=== PATIENT | female | born 1975 | race Caucasian/White ===

== ENCOUNTER → 2019-02-19 | Outpatient (CLI) | payer BC ==
--- NOTE | 2019-02-22 10:28 | MM ---
Reason for exam: screening (asymptomatic). Last mammogram was performed 2 years ago. History: Family history of breast cancer in grandmother at age 60 and premenopausal breast cancer in maternal aunt at age 42. U/S LT Cancelled Core of the left breast, March 15, 2011. Reductions of both breasts, 1995. Took hormonal contraceptives for 10 years. Physical Findings: A clinical breast exam by your physician is recommended on an annual basis and results should be correlated with mammographic findings. MG 3D Screening Mammo W/Cad Bilateral CC, MLO, and XCCL view(s) were taken. Prior study comparison: February 05, 2017, bilateral MG 3d diag mammo w/cad KELIN. October 19, 2015, bilateral MG 3d diag mammo w/cad KELIN. The breast tissue is heterogeneously dense. This may lower the sensitivity of mammography. Stable benign calcifications. There is no discrete abnormality. No significant changes when compared with prior studies. ASSESSMENT: Benign, BI-RAD 2 RECOMMENDATION: Routine screening mammogram of both breasts in 1 year.
== END | disposition home or self-care (01) ==
LOC: RADMAMWWP 08:38
PROVIDERS: ATTEND Obstetrics & Gynecology
DX: Z12.31 Encounter for screening mammogram for malignant neoplasm of breast (principal)
CPT/HCPCS: 77063; 77067

== ENCOUNTER → 2020-06-14 | Outpatient (CLI) | payer BC ==
--- NOTE | 2020-06-14 12:43 | MM ---
Reason for exam: screening (asymptomatic). Last mammogram was performed 1 year and 4 months ago. History: Family history of breast cancer in grandmother at age 60 and premenopausal breast cancer in maternal aunt at age 42. U/S LT Cancelled Core of the left breast, March 15, 2011. Reductions of both breasts, 1996. Took hormonal contraceptives for 10 years. Physical Findings: A clinical breast exam by your physician is recommended on an annual basis and results should be correlated with mammographic findings. MG 3D Screening Mammo W/Cad Bilateral CC and MLO view(s) were taken. Prior study comparison: February 19, 2019, bilateral MG 3d screening mammo w/cad. February 05, 2017, bilateral MG 3d diag mammo w/cad KELIN. The breast tissue is extremely dense which could obscure a lesion on mammography. There are benign appearing round calcifications bilaterally, greater in the left breast. Previous mammotome biopsy in the left breast. There is no discrete abnormality. ASSESSMENT: Benign, BI-RAD 2 RECOMMENDATION: Routine screening mammogram of both breasts in 1 year.
== END | disposition home or self-care (01) ==
LOC: RADMAMWWP 07:24
PROVIDERS: ATTEND Obstetrics & Gynecology
DX: Z12.31 Encounter for screening mammogram for malignant neoplasm of breast (principal); Z80.3 Family history of malignant neoplasm of breast
CPT/HCPCS: 77063; 77067

== ENCOUNTER → 2021-12-27 | Outpatient (CLI) | payer BC ==
--- NOTE | 2021-12-27 09:05 | MM ---
Reason for Exam: Clinical finding. Last mammogram was performed 1 year(s) and 6 month(s) ago. Indicated Problems: Lump or thickening of the left side (size 20) for 1 Week(s). Patient History: Menarche at age 13. First Full-Term at age 27. Patient has history of breast feeding. Patient used Hormonal Contraceptives for 10 years. 10/13/1994, Bilateral Reduction. 1995, Bilateral Reduction. 03/15/2011, U/S LT Cancelled Core on the left side. Maternal grandmother had breast cancer, age 60. Maternal aunt had breast cancer, age 46. Last menstrual period: 12/20/2021 Risk Values: Chelsi 5 year model risk: 0.9%. NCI Lifetime model risk: 9.5%. Prior Study Comparison: 02/05/2017 Bilateral Diagnostic Mammogram, [facility]. 02/05/2017 Bilateral Diagnostic Ultrasound, [facility]. 02/19/2019 Bilateral Screening Mammogram, [facility]. 06/14/2020 Bilateral Screening Mammogram, [facility]. Tissue Density: The breast tissue is heterogeneously dense. This may lower the sensitivity of mammography. Findings: Analyzed By CAD. Asymmetric density posterior central left MLO view remains unchanged. Microclip in this region from prior biopsy. Additional asymmetric density lateral posterior right cc view remains unchanged. Asymmetric density inferior left MLO view unchanged. Scattered punctate regional calcifications particularly on the left are unchanged. There is a new 1.3 cm spiculated mass in the left upper outer quadrant middle to posterior depth. Overlying palpable marker. Overall Assessment: Incomplete: need additional imaging evaluation, BI-RAD 0 Management: Diagnostic Breast Ultrasound of the left breast. Electronically signed and approved by: Amparo Mcgowan M.D. Radiologist
--- NOTE | 2021-12-27 09:40 | USB ---
Patient History: Menarche at age 13. First Full-Term at age 27. Patient has history of breast feeding. Patient used Hormonal Contraceptives for 10 years. 10/13/1994, Bilateral Reduction. 1995, Bilateral Reduction. 03/15/2011, U/S LT Cancelled Core on the left side. Maternal grandmother had breast cancer, age 60. Maternal aunt had breast cancer, age 46. Risk Values: Chelsi 5 year model risk: 0.9%. NCI Lifetime model risk: 9.5%. Technique: Method: Whole Breast Handheld. Prior Study Comparison: 02/05/2017 Bilateral Diagnostic Mammogram, [facility]. 02/19/2019 Bilateral Screening Mammogram, [facility]. 06/14/2020 Bilateral Screening Mammogram, [facility]. Findings: The whole breast of the left breast, the axilla of the left breast and the retroareolar of the left breast were scanned. A complete US of all four quadrants of the breast , axilla, and retro-areolar region were reviewed. At the 1:00 palpable site, 8 cm from the nipple, there is a 1.1 x 0.9 x 0.6 cm irregular hypoechoic mass with angular margins. This is vertically oriented with echogenic halo. No other solid or cystic lesion. No axillary lymphadenopathy. Overall Assessment: Highly suggestive of malignancy, BI-RAD 5 Management: Ultrasound Core Biopsy of the left breast. Results were given to the patient verbally at the time of exam. Electronically signed and approved by: Amparo Mcgowan M.D. Radiologist
== END | disposition home or self-care (01) ==
LOC: RADMAMWWP 08:22
PROVIDERS: ATTEND Obstetrics & Gynecology
DX: R92.8 Other abnormal and inconclusive findings on diagnostic imaging of breast (principal); Z80.3 Family history of malignant neoplasm of breast
CPT/HCPCS: 77062; 77066

== ENCOUNTER 2022-01-29 12:08 | Day surgery (SDC) | payer BC ==
--- NOTE | 2022-01-29 11:50 | P.GSHP ---
History of Present Illness H&P Date: 01/29/22 46-year-old female with recent diagnosis of left-sided breast cancer. Patient to begin neoadjuvant chemotherapy. Here today for Port-A-Cath placement. She has not had one previously. Past Medical History Past Medical History: Cancer Additional Past Medical History / Comment(s): new breast cancer dx. recently History of Any Multi-Drug Resistant Organisms: None Reported Past Surgical History: Breast Surgery Additional Past Surgical History / Comment(s): bilat breast reduction 1996 Past Anesthesia/Blood Transfusion Reactions: No Reported Reaction Smoking Status: Never smoker - Past Family History Mother Family Medical History: No Reported History Medications and Allergies Home Medications Medication Instructions Recorded Confirmed Type Multivit-Min/Folic Acid/Biotin 133.3 mcg PO DAILY 01/28/22 01/28/22 History [Hair, Skin and Nails Softgel] Allergies Allergy/AdvReac Type Severity Reaction Status Date / Time No Known Allergies Allergy Verified 01/28/22 08:19 Surgical - Exam Physical exam: General: Well-developed, well-nourished HEENT: Normocephalic, sclerae nonicteric Abdomen: Nontender, nondistended Extremities: No edema Neuro: Alert and oriented Assessment and Plan (1) Breast cancer, left Narrative/Plan: Will proceed with Port-A-Cath placement at this time. Risks of bleeding, infection, DVT, pneumothorax, catheter malfunction, anesthesia related complications were discussed. The patient understands and wishes to proceed. Status: Acute Code(s): C50.912 - MALIGNANT NEOPLASM OF UNSPECIFIED SITE OF LEFT FEMALE BREAST SNOMED Code(s): 735035018
[~2022-01-29 12:08] MED LIST: ACETAMINOPHEN TAB 500 MG TAB PO PRN; HEPARIN SODIUM,PORCINE/PF 5,000 UNIT/0.5 ML SYRINGE SQ PRN; Pre Op ABX Message 1 EACH MISC MISCELLANE ONE
[2022-01-29 12:51] VITALS: RESP 16
[2022-01-29] MEDS ORDERED: ONDANSETRON 4 MG/2 ML VIAL ONE (13:06)
[2022-01-29] MEDS ORDERED: LACTATED RINGERS 1,000 ML IV ONE (13:07)
[2022-01-29] MEDS ORDERED: ONDANSETRON 4 MG/2 ML VIAL IVP ONE (13:09)
[2022-01-29] MEDS ORDERED: DEXAMETHASONE SOD PHOSPHATE 4 MG/ML 1 ML VIAL IVP ONE (13:10)
[2022-01-29] MEDS ORDERED: MIDAZOLAM 2 MG/2 ML VIAL ONE (13:25)
[2022-01-29] MEDS ORDERED: PROPOFOL 10 MG/ML 20 ML VIAL IV ONE (13:25)
[2022-01-29] MEDS ORDERED: LIDOCAINE 2% INJ 20 MG/ML (2 ML VIAL) ONE (13:25)
[2022-01-29] MEDS ORDERED: fentaNYL (PF) 50 MCG/ML 2 ML AMP ONE (13:25)
[2022-01-29] MEDS ORDERED: LIDOCAINE 0.5% (PF) 5 MG/ML (50 ML SDV) SQ ONE ×2 (13:55)
[2022-01-29] MEDS ORDERED: HEPARIN SODIUM,PORCINE 100 UNIT/ML 5 ML VIAL IV ONE (13:55)
[2022-01-29] MEDS ORDERED: NALOXONE 0.4 MG/ML 1 ML VIAL IV PRN (14:23)
[2022-01-29] MEDS ORDERED: ACETAMINOPHEN TAB 325 MG TAB PO PRN (14:23)
[2022-01-29] MEDS ORDERED: traMADol 50 MG TAB PO PRN (14:23)
--- NOTE | 2022-01-29 14:23 | P.OP ---
Date of Procedure: 01/29/22 Procedure(s) Performed: PREOPERATIVE DIAGNOSIS: Breast cancer POSTOPERATIVE DIAGNOSIS: Same PROCEDURE: Port-A-Cath placement with fluoroscopic and ultrasound guidance SURGEON: Kwame EBL: Minimal ANESTHESIA: Sedation COMPLICATIONS: None OPERATIVE PROCEDURE: Patient was brought and placed on the operative table in the supine position. The patient was sedated per anesthesia that time. The chest and neck were prepped and draped in usual sterile fashion. The ultrasound probe was used to identify the location of the right internal jugular vein. The skin was localized with lidocaine. The Seldinger needle was advanced into the IJ under ultrasound guidance. The wire was advanced through the needle under fluoroscopic guidance into the superior vena cava. A port pocket was created in the right infraclavicular location. The catheter was tunneled from the wire entrance site to the port pocket. The port was then connected to the catheter. The dilator introducer was threaded over the guidewire. The guidewire and dilator were then removed. The catheter was advanced through the introducer and introducer was then removed. The tip was seen to be in the right atrial junction via fluoroscopy. A picture of the radiograph showing the tip at the radial digital junction was taken. Port was flushed with both saline and a Hep- Lock solution. There was good flow both in and out of the port. The port was sutured in underlying tissues using 3-0 silk sutures. The subcutaneous tissues were reapproximated using 3-0 Vicryl sutures and the skin at both locations using 4-0 Monocryl sutures. Skin glue and sterile dressings then applied. DISPOSITION: Stable to recovery room
[2022-01-29 14:25] VITALS: TEMP 96.8
--- NOTE | 2022-01-29 15:06 | XR ---
EXAMINATION TYPE: XR chest 1V portable DATE OF EXAM: 01/29/2022 COMPARISON: NONE HISTORY: Port placement. TECHNIQUE: Single AP portable frontal upright view of the chest is obtained. FINDINGS: Lungs are clear. There is right internal jugular Mediport catheter terminating in SVC. No pneumothorax is seen. The cardiac silhouette size is upper limits of normal. The osseous structures are intact. IMPRESSION: As above.
--- NOTE | 2022-01-29 15:12 | FL ---
EXAMINATION TYPE: FL guided central line placemt DATE OF EXAM: 01/29/2022 CLINICAL HISTORY: Port-A-Cath insertion TECHNIQUE: Fluoroscopy. COMPARISON: None. FINDINGS: Fluoroscopic guidance was provided during Port-A-Cath insertion procedure performed by Dr. De La Torre. A total of 5 seconds of fluoroscopic time was utilized during the procedure and 0 spot image s was acquired. IMPRESSION: As Above.
[2022-01-29 15:34] VITALS: BP 133/80; PULSE 56
== END 2022-01-29 15:53 | disposition home or self-care (01) ==
LOC: OR 12:08
PROVIDERS: ATTEND Surgery
DX: Z45.2 Encounter for adjustment and management of vascular access device (principal); C50.912 Malignant neoplasm of unspecified site of left female breast; Z85.3 Personal history of malignant neoplasm of breast
CPT/HCPCS: 36590; 81025; 77001; 71045; C1788; J2250; J1642; J1100; J2405; J2001 ×2; J3010; J2704; J1644

== ENCOUNTER → 2022-10-04 | Outpatient (CLI) | payer BC ==
--- NOTE | 2022-10-04 18:17 | CA ---
Transthoracic Echo Report Name: Isabel Au Age: 47 Gender: F : 1975 Exam Date: 10/04/2022 16:06 Exam Location: [facility] Ht (in): 66 Wt (lb): 150 Ordering Physician: Renzo Dasilva MD Attending/Referring Phys: Health Careers Instructor Josiane Wakefield [facility] Procedure CPT: Indications: Z01.818 Cardiac Hx: Technical Quality: Fair Contrast 1: Total Dose (mL): Contrast 2: Total Dose (mL): MEASUREMENTS (Male / Female) Normal Values 2D ECHO LV Diastolic Diameter PLAX 5.0 cm 4.2 - 5.9 / 3.9 - 5.3 cm LV Systolic Diameter PLAX 3.5 cm IVS Diastolic Thickness 0.8 cm 0.6 - 1.0 / 0.6 - 0.9 cm LVPW Diastolic Thickness 0.8 cm 0.6 - 1.0 / 0.6 - 0.9 cm LV Relative Wall Thickness 0.3 LVOT Diameter 2.0 cm Ascending Aorta Diameter 3.2 cm M-MODE Aortic Root Diameter MM 4.0 cm LA Systolic Diameter MM 2.5 cm LA Ao Ratio MM 0.6 AV Cusp Separation MM 2.6 cm DOPPLER AV Peak Velocity 116.1 cm/s AV Peak Gradient 5.4 mmHg AV Mean Velocity 87.2 cm/s AV Mean Gradient 3.3 mmHg AV Velocity Time Integral 22.3 cm LVOT Peak Velocity 86.6 cm/s LVOT Peak Gradient 3.0 mmHg LVOT Velocity Time Integral 18.5 cm LVOT Stroke Volume 59.6 cm??? LVOT Stroke Volume Index 33.7 ml/m??? LVOT Cardiac Index 3100.7 cm???/min???m??? AV Area Cont Eq vti 2.7 cm??? AV Area Cont Eq pk 2.4 cm??? Mitral E Point Velocity 49.6 cm/s Mitral A Point Velocity 62.8 cm/s Mitral E to A Ratio 0.8 MV Deceleration Time 192.2 ms LV E' Lateral Velocity 11.1 cm/s Mitral E to LV E' Lateral Ratio 4.5 LV E' Septal Velocity 10.9 cm/s Mitral E to LV E' Septal Ratio 4.6 Right Atrial Pressure 3.0 mmHg FINDINGS Left Ventricle Normal Left ventricular size and wall thickness. Left ventricular ejection fraction is estimated at 45-50 %. Mild global hypokinesis Right Ventricle Right ventricle at upper limits of normal. Unable to estimate the right ventricular systolic pressure. Right Atrium Normal right atrial size. Left Atrium Normal left atrial size. Mitral Valve Structurally normal mitral valve. Trace to mild mitral regurgitation. Aortic Valve Bicuspid aortic valve. No aortic valve stenosis or regurgitation. Tricuspid Valve Structurally normal tricuspid valve. No tricuspid regurgitation. Pulmonic Valve Pulmonic valve not well visualized. Pericardium No pericardial effusion. Aorta Moderate aortic dilatation at the level of the sinuses of valsalva (root). Proximal ascending aorta (tube) normal. CONCLUSIONS 1. Mildly impaired left ventricle systolic function with global hypokinesis 2. Trace to mild mitral regurgitation. 3. Bicuspid aortic valve Previewed by: Dr. Will Vasquez MD (Electronically Signed) Final Date: 04 October 2022 18:17
== END | disposition home or self-care (01) ==
LOC: RADECHMAIN 15:52
PROVIDERS: ATTEND Internal Medicine Hematology & Oncology
DX: Z01.818 Encounter for other preprocedural examination (principal); I34.0 Nonrheumatic mitral (valve) insufficiency; Q23.1 Congenital insufficiency of aortic valve
CPT/HCPCS: 93306

== ENCOUNTER → 2023-01-06 | Outpatient (CLI) | payer BC ==
--- NOTE | 2023-01-07 07:29 | CA ---
Transthoracic Echo Report Name: Isabel Au Age: 47 Gender: F : 1975 Exam Date: 01/06/2023 11:29 Exam Location: [facility] Ht (in): 66 Wt (lb): 155 Ordering Physician: Renzo Dasilva MD Attending/Referring Phys: Central Office Installer Angelica Adhikari RDCS Procedure CPT: Indications: Z01.818 Chemo Cardiac Hx: Technical Quality: Fair Contrast 1: Total Dose (mL): Contrast 2: Total Dose (mL): MEASUREMENTS (Male / Female) Normal Values 2D ECHO LV Diastolic Diameter PLAX 4.9 cm 4.2 - 5.9 / 3.9 - 5.3 cm LV Systolic Diameter PLAX 3.5 cm IVS Diastolic Thickness 0.8 cm 0.6 - 1.0 / 0.6 - 0.9 cm LVPW Diastolic Thickness 0.9 cm 0.6 - 1.0 / 0.6 - 0.9 cm LV Relative Wall Thickness 0.3 RV Internal Dim ED PLAX 3.1 cm LA Systolic Diameter LX 2.9 cm 3.0 - 4.0 / 2.7 - 3.8 cm LV Diastolic Volume MOD 4C 94.3 cm??? LV Systolic Volume MOD 4C 53.2 cm??? LV Ejection Fraction MOD 4C 43.6 % LV Cardiac Index MOD 4C 1582.9 cm???/min???m??? LV Diastolic Length 4C 7.4 cm LV Systolic Length 4C 6.8 cm LV Diastolic Volume MOD 2C 67.3 cm??? LV Systolic Volume MOD 2C 30.6 cm??? LV Ejection Fraction MOD 2C 54.6 % LV Cardiac Index MOD 2C 1414.0 cm???/min???m??? LV Diastolic Length 2C 8.4 cm LV Systolic Length 2C 7.0 cm LA Volume 51.5 cm??? 18 - 58 / 22 - 52 cm??? LA Volume Index 28.3 cm???/m??? 16 - 28 cm???/m??? M-MODE Aortic Root Diameter MM 4.1 cm MV E Point Septal Separation 0.8 cm AV Cusp Separation MM 2.2 cm DOPPLER AV Peak Velocity 121.5 cm/s AV Peak Gradient 5.9 mmHg MV Area PHT 2.8 cm??? Mitral E Point Velocity 55.1 cm/s Mitral A Point Velocity 48.6 cm/s Mitral E to A Ratio 1.1 MV Deceleration Time 272.0 ms MV E' Velocity 10.0 cm/s Mitral E to MV E' Ratio 5.5 FINDINGS Left Ventricle Left ventricular ejection fraction is estimated at 50-55 %. Left ventricular cavity size normal. Left ventricular wall thickness normal. No change in the peak systolic strain compared to prior study Right Ventricle Normal right ventricular size. Unable to estimate the right ventricular systolic pressure. Good RVsystolic function Right Atrium Normal right atrial size. Left Atrium Normal left atrial size. Mitral Valve Structurally normal mitral valve. No mitral stenosis, regurgitation or prolapse. Aortic Valve Bicuspid aortic valve. Aortic valve sclerosis. Preserved opening Tricuspid Valve Structurally normal tricuspid valve. No tricuspid stenosis, regurgitation or prolapse. Pulmonic Valve Structurally normal pulmonic valve. Trace pulmonic regurgitation. Pericardium No pericardial effusion. Aorta Mild aortic dilatation at the level of the sinuses of valsalva 41 mm CONCLUSIONS 1. Left ventricle systolic function borderline normal 2. Bicuspid aortic valve with preserved opening and no significant regurgitation Previewed by: Dr. Will Vasquez MD (Electronically Signed) Final Date: 07 January 2023 07:28
== END | disposition home or self-care (01) ==
LOC: RADECHMAIN 11:27
PROVIDERS: ATTEND Internal Medicine Hematology & Oncology
DX: Z01.818 Encounter for other preprocedural examination (principal); C50.412 Malignant neoplasm of upper-outer quadrant of left female breast; Z71.3 Dietary counseling and surveillance
CPT/HCPCS: 93306

== ENCOUNTER → 2023-01-16 | Outpatient (CLI) | payer BC ==
[2023-01-16 13:32] LABS: African American GFR (CKD) >90 (>60 ml/min/1.73 sqM); Blood Urea Nitrogen 11 mg/dL (7-17); Non-African American GFR(CKD) >90 (>60 ml/min/1.73 sqM)
--- NOTE | 2023-01-16 14:42 | CT ---
EXAMINATION TYPE: CT ChestAbdPelvis w con DATE OF EXAM: 01/16/2023 COMPARISON: None HISTORY: Breast CA. CT DLP: 664.9 mGycm CONTRAST: CT scan of the chest, abdomen and pelvis is performed with Oral Contrast and with IV Contrast, patien t injected with 100 ml mL of Isovue 300. CT Chest: LUNGS: Left upper lobe subpleural strandy attenuation could be developing fibrosis. The remainder of the lungs are clear. The lungs are clear and free of infiltrate or atelectasis. No pulmonary nodule or mass is detected. No pleural effusion or CT evidence of interstitial lung disease. MEDIASTINUM: Thoracic aorta is of normal caliber. The heart is not enlarged. No evidence for media stinal mass or adenopathy. HILAR STRUCTURES: No evidence for mass. No hilar adenopathy is appreciated. OTHER: No significant abnormality. CONTRAST CT ABDOMEN AND PELVIS FINDINGS: LIVER/GB: No calcified gallstones. Hypoattenuating hepatic lesions are compatible with cyst totalin g 4-5 in number with the largest noted medial aspect lateral segment left hepatic lobe measuring 1.5 cm. Biliary tree is of normal caliber. PANCREAS: No inflammation. No distinct mass. SPLEEN: No splenic enlargement. No lesion seen. ADRENALS: No nodule. No thickening. KIDNEYS/BLADDER: No hydronephrosis. No nephrolithiasis. No disctinct renal mass. BOWEL: Normal appendix. Normal bowel caliber. No inflammation. GENITAL ORGANS: No gross abnormality. LYMPH NODES: No greater than 1cm abdominal or pelvic lymph nodes are appreciated. AORTA: No significant abnormality. OSSEOUS STRUCTURES: No significant abnormality is seen. OTHER: No significant additional abnormality is seen. IMPRESSION: 1. No evidence of metastatic disease. 2. Hepatic simple cysts noted. 3. Subpleural strandy attenuation left upper lobe anteriorly may reflect developing fibrosis or posti nflammatory change.
== END | disposition home or self-care (01) ==
LOC: RADCTMAIN 12:41
PROVIDERS: ATTEND Internal Medicine Hematology & Oncology
DX: C50.412 Malignant neoplasm of upper-outer quadrant of left female breast (principal); K76.89 Other specified diseases of liver; R91.8 Other nonspecific abnormal finding of lung field
CPT/HCPCS: 82565; 84520; 71260; 74177; Q9967

== ENCOUNTER 2023-02-07 09:49 | Day surgery (SDC) | payer BC ==
[~2023-02-07 09:49] MED LIST changes: -Pre Op ABX Message 1 EACH MISC MISCELLANE ONE
[2023-02-07] MEDS ORDERED: ONDANSETRON 4 MG/2 ML VIAL IVP ONE (10:56)
[2023-02-07] MEDS ORDERED: HYDROmorphone 0.5 MG/0.5 ML SYRINGE IVP PRN (10:56)
[2023-02-07] MEDS ORDERED: DEXAMETHASONE SOD PHOSPHATE 4 MG/ML 1 ML VIAL IV ONE (10:56)
[2023-02-07] MEDS ORDERED: MIDAZOLAM 2 MG/2 ML VIAL IV PRN (10:56)
[2023-02-07] MEDS ORDERED: LACTATED RINGERS 1,000 ML IV SCH (10:56)
[2023-02-07] MEDS ORDERED: SCOPOLAMINE 1 MG/72 HR PATCH TRANSDERM ONE (10:56)
[2023-02-07 11:25] VITALS: RESP 16; TEMP 97.3
[2023-02-07] MEDS ORDERED: PROPOFOL 10 MG/ML 20 ML VIAL IV ONE (11:41)
[2023-02-07] MEDS ORDERED: MIDAZOLAM 2 MG/2 ML VIAL ONE (11:41)
[2023-02-07] MEDS ORDERED: fentaNYL (PF) 50 MCG/ML 2 ML AMP ONE (11:41)
[2023-02-07] MEDS ORDERED: ePHEDrine 50 MG/ML 1 ML VIAL ONE (11:41)
[2023-02-07] MEDS ORDERED: LIDOCAINE 1% INJ 10MG/ML (20 ML MDV) ONE (11:41)
--- NOTE | 2023-02-07 11:45 | P.GSHP ---
History of Present Illness H&P Date: 02/07/23 Chief Complaint: Breast cancer 47-year-old female here for Port-A-Cath removal. Finished her chemo one month ago. No issues with the port while it was in place. Past Medical History Past Medical History: Cancer Additional Past Medical History / Comment(s): L breast cancer with surgery/chemo and radiation. History of Any Multi-Drug Resistant Organisms: None Reported Past Surgical History: Breast Surgery Additional Past Surgical History / Comment(s): L breast lumpectomy, R side port, bilat breast reduction 1996 Past Anesthesia/Blood Transfusion Reactions: No Reported Reaction Smoking Status: Never smoker - Past Family History Mother Family Medical History: No Reported History Father Family Medical History: No Reported History Medications and Allergies Home Medications Medication Instructions Recorded Confirmed Type Biotin [Xwyw-Gzhk-Wikku] 10,000 mcg PO QAM 02/05/23 02/07/23 History Letrozole [Femara] 2.5 mg PO QAM 02/05/23 02/07/23 History Allergies Allergy/AdvReac Type Severity Reaction Status Date / Time No Known Allergies Allergy Verified 02/05/23 14:45 Surgical - Exam Vital Signs Temp Pulse Resp BP Pulse Ox 97.3 F L 60 16 129/79 100 02/07/23 11:06 02/07/23 11:06 02/07/23 11:06 02/07/23 11:06 02/07/23 11:06 Assessment and Plan (1) Breast cancer, left Narrative/Plan: Will proceed with Port-A-Cath removal at this time. Current Visit: No Status: Acute Code(s): C50.912 - MALIGNANT NEOPLASM OF UNSPECIFIED SITE OF LEFT FEMALE BREAST SNOMED Code(s): 401849126
[2023-02-07] MEDS ORDERED: LIDOCAINE 1% INJ 10MG/ML (30 ML VIAL-PF) SQ ONE (11:58)
[2023-02-07] MEDS ORDERED: NALOXONE 0.4 MG/ML 1 ML VIAL IV PRN (12:14)
[2023-02-07] MEDS ORDERED: ACETAMINOPHEN TAB 325 MG TAB PO PRN (12:14)
--- NOTE | 2023-02-07 12:16 | P.OP ---
Date of Procedure: 02/07/23 Procedure(s) Performed: PREOPERATIVE DIAGNOSIS: Breast cancer POSTOPERATIVE DIAGNOSIS: Same PROCEDURE: Port-A-Cath removal SURGEON: Kwame EBL: Minimal ANESTHESIA: Sedation COMPLICATIONS: None OPERATIVE PROCEDURE: Patient was placed in the supine position. The patient was sedated per anesthesia that time. The chest was prepped and draped in the usual sterile fashion. The skin was localized with Marcaine solution. The previous incision was re-incised using a scalpel. The port was easily excised using accommodation of blunt dissection sharp dissection and electrocautery. The subcutaneous tissues were reapproximated using 3-0 Vicryl sutures. The skin was reapproximated using interrupted 4-0 Monocryl sutures. Skin glue was then applied. DISPOSITION: Stable to recovery room
[2023-02-07 12:40] VITALS: BP 116/67; PULSE 67
== END 2023-02-07 12:59 | disposition home or self-care (01) ==
LOC: OR 09:49
PROVIDERS: ATTEND Surgery
DX: C50.912 Malignant neoplasm of unspecified site of left female breast (principal); F10.90 Alcohol use, unspecified, uncomplicated; Z79.811 Long term (current) use of aromatase inhibitors; Z79.899 Other long term (current) drug therapy
CPT/HCPCS: 81025; 36590; J2250; J1100; J0690; J2405; J2001 ×2; J3010; J2704; J1644

== ENCOUNTER → 2023-03-19 | Outpatient (CLI) | payer BC ==
--- NOTE | 2023-03-19 18:27 | BD ---
EXAMINATION TYPE: Axial Bone Density DATE OF EXAM: 03/19/2023 CLINICAL HISTORY: 47 years old Female. ICD-10 CODE: C50.412 BREAST CANCER Height: 66 Weight: 153.6 FRAX RISK QUESTIONS: Alcohol (3 or more units per day): no Family History (Parent hip fracture): no Glucocorticoids (More than 3mos): no (Ex: prednisone, prednisolone, methylprednisolone, dexamethasone, and hydrocortisone). History of Fracture in Adulthood: no Secondary Osteoporosis: 1. Type 1 Diabetes: no 2. Hyperthyroidism: no 3. Menopause before 45: no 4. Malnutrition: no 5. Chronic liver disease: no Rheumatoid Arthritis: no Current Tobacco Use: no RISK FACTORS HISTORY OF: History of Wrist Fracture: left wrist ? When: age 14 Surgery to Spine/Hip(right/left)/Wrist (right/left): no MEDICATIONS: femara Additional History: breast cancer EXAM MEASUREMENTS: Bone mineral densitometry was performed using the [employer] System. Bone mineral density as measured about the Lumbar spine is: ----- L1-L4(G/cm2): 1.042 T Score Values are as follows: ----- L1: -0.9 ----- L2: -1.1 ----- L3: -1.4 ----- L4: -1.3 ----- L1-L4: -1.2 Z Score Values are as follows: ----- L1: -.7 ----- L2: -1.0 ----- L3: -1.2 ----- L4: -1.2 ----- L1-L4: -1.0 Bone mineral density : baseline Bone mineral density about the R hip (g/cm2): 0.954 Bone mineral density about the L hip (g/cm2): 0.959 T Score values are as follows: -----R Neck: -0.5 -----L Neck: -0.7 -----R Total: -.4 -----L Total: -0.4 Z Score values are as follows: -----R Neck: 0.1 -----L Neck: 0.0 -----R Total: -0.1 -----L Total: -0.1 Bone mineral density : baseline FRAX%s: The graph provided illustrates a 3.4% chance for a major osteoporotic fx and a 0.1% chance fo r the hips probability for fx in 10 years time. IMPRESSION: Osteopenia (T Score between -2.5 and -1). There is slightly increased risk of fracture and the patient may be considered for treatment. Re-Screen 2-5 years. NOTE: T-SCORE=SD OF THE YOUNG ADULT MEAN.
== END | disposition home or self-care (01) ==
LOC: RADBDWWP 07:43
PROVIDERS: ATTEND Internal Medicine Hematology & Oncology
DX: M85.88 Other specified disorders of bone density and structure, other site (principal); C50.412 Malignant neoplasm of upper-outer quadrant of left female breast
CPT/HCPCS: 77080

== ENCOUNTER → 2023-06-26 | Outpatient (CLI) | payer BC ==
--- NOTE | 2023-06-27 12:19 | PE ---
EXAMINATION TYPE: PET CT fusion skull to thigh DATE OF EXAM: 06/26/2023 COMPARISON: CT chest abdomen pelvis 01/16/2023 Prior PET/CT: No prior PET/CT of dislocation HISTORY: Breast cancer TECHNIQUE: Following the intravenous administration of 11.36 mCi of F-18 FDG, whole body images are performed from the skull base to the midthigh. Images are reviewed on the computer in the coronal, a xial, and sagittal planes. Reconstructed rotating images are created on independent workstation and reviewed on the computer. A localization and attenuation correction CT is performed in conjunction with the PET scan. DLP: 317.68 mGycm SCAN: Subsequent Blood glucose: 87 mg/dL Average Mediastinum SUV: Average Liver SUV: FINDINGS: NECK: No abnormal uptake THORAX: No abnormal uptake. Minimal postsurgical change is evident within the upper outer quadrant le ft breast. ABDOMEN: No abnormal uptake PELVIS: No abnormal uptake OSSEOUS STRUCTURES: No abnormal uptake LOCALIZATION CT: Mild diverticulosis without acute diverticulitis is present. Postsurgical changes ar e at the left upper outer quadrant. COMPARISON: No significant interval change IMPRESSION: 1. No suspicious changes to suggest recurrent or metastatic breast cancer.
== END | disposition home or self-care (01) ==
LOC: RADPETMAIN 06:34
PROVIDERS: ATTEND Internal Medicine Hematology & Oncology
DX: C50.412 Malignant neoplasm of upper-outer quadrant of left female breast (principal)
CPT/HCPCS: 78815; A9552